=== PATIENT | male | born 1955 | race Caucasian/White ===

== ENCOUNTER 2017-02-28 12:43 | Observation (INO) | payer OTHER ==
[2017-02-28] MEDS ORDERED: Ondansetron 4 MG/2 ML SDV IVPUSH ONE (13:08)
[2017-02-28] MEDS ORDERED: Sodium Chloride 0.9% 1,000 ML IV ONE (13:08)
[2017-02-28] MEDS ORDERED: Meclizine 25 MG Tab PO ONE ×2 (13:09→22:12)
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
[2017-02-28] MEDS ORDERED: Metoclopramide 10 MG/2 ML SDV IVPUSH ONE (13:39)
[2017-02-28] MEDS ORDERED: diphenhydrAMINE 50 MG/ML SDV IVPUSH ONE (13:39)
[2017-02-28] MEDS ORDERED: LORazepam 2 MG/ML SDV IVPUSH ONE (14:02)
[2017-02-28 14:17] LABS: CHLORIDE,CL 108 mmol/L (98-110); SODIUM,NA 137 mmol/L (136-146)
[2017-02-28] MEDS ORDERED: Sodium Chloride 0.9% 2.5 ML Syringe FLUSH PRN (14:42)
[2017-02-28] MEDS ORDERED: Sodium Chloride 0.9% 10 ML Syringe FLUSH PRN (14:42)
[2017-02-28] MEDS ORDERED: Heparin Sodium 5,000 Units/ML Vial SUBCUT SCH (14:45)
[2017-02-28] MEDS ORDERED: Meclizine 25 MG Tab PO PRN (14:48)
[2017-02-28] MEDS ORDERED: Aspirin 325 MG Tab PO SCH (16:30)
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
[2017-02-28] MEDS ORDERED: diphenhydrAMINE 50 MG/ML SDV IVPUSH PRN (20:32)
[2017-02-28] MEDS ORDERED: Metoclopramide 10 MG/2 ML SDV IVPUSH PRN (20:33)
[2017-02-28] MEDS ORDERED: Sodium Chloride 0.45% 1,000 ML IV SCH (20:45)
[2017-02-28] MEDS ORDERED: diphenhydrAMINE 25 MG Cap PO ONE (22:12)
--- NOTE | 2017-03-01 07:58 | CT ---
EXAM DATE: 02/28/17 PATIENT'S AGE: 62 Patient: JENNIFER BARBER Facility: [place], [place] Site . Site : 1955 Study: CT Head [id number] 1:31:11 PM Ordering Physician: Doctor Lemus Final Report: INDICATION: Dizziness. Technique: CT head without IV contrast. Findings: Metallic pedro luis and screw fixation posteriorly from C4 to lower cervical or upper thoracic spine partially visualized on today`s shake out worker view with plate and screw fixation anteriorly from C4 to the lower cervical spine partially visualized on today`s shake out worker view. Mild fluid and mucosal thickening in the bilateral maxillary and ethmoidal sinuses and in the right frontal and sphenoid sinus where there are polyps and/or retention cysts. No intracranial hemorrhage, edema , or mass effect. Mild cerebral atrophy. Remainder negative. Impression: 1. No acute intracranial disease. 2. Mild inflammatory changes in the paranasal sinuses. 3. Intracranial vasculature is denser than typical and this was not described above and may be related to dehydration. 4. Postsurgical changes involving the mid and lower cervical spine partially visualized on today`s shake out worker view. Please note that all CT scans at this facility use dose modulation, iterative reconstruction, and/or weight-based dosing when appropriate to reduce radiation dose to as low as reasonably achievable. Dictated by Edwardo Tapia MD @ Feb 28 2017 1:40PM (Electronic Signature) Report Signed by Proxy. DANIEL
--- NOTE | 2017-03-01 08:00 | CR ---
EXAM DATE: 02/28/17 PATIENT'S AGE: 62 Patient: JENNIFER BARBER Facility: [place], [place] Site . Site : 1955 Study: XRay Chest [id number] 1:37:36 PM Ordering Physician: Doctor Lemus Final Report: INDICATION: Dizziness. Technique: AP chest. Findings: Heart and mediastinum are normal in size. Pulmonary vessels are normal. Linear atelectasis at the lung bases. Lungs otherwise clear. No pleural fluid. Mild elevation of the right hemidiaphragm. No acute bony abnormality. Postoperative change in the lower cervical and upper thoracic spine. Impression: Bibasilar atelectasis. Dictated by Jennifer Rivera MD @ Feb 28 2017 1:40PM (Electronic Signature) Report Signed by Proxy. DANIEL
== END 2017-02-28 23:25 | disposition home or self-care (01) ==
LOC: MW.ED 12:43 → MW.MS 14:30 → INTOOBSV 14:42 → OBSVTOIN 14:42
PROVIDERS: ADMIT Internal Medicine; ATTEND Internal Medicine
DX: R42 Dizziness and giddiness (principal); R26.9 Unspecified abnormalities of gait and mobility; Z87.828 Personal history of other (healed) physical injury and trauma
CPT/HCPCS: 36415; 70450; 71010; 80053; 84484; 85025; 85379; 85610; 93005; 96361; 96374; 96375; 99285; A9270; J1200; J1644; J2060; J2405; J2765; J7040; 96372; 99283; G0378